=== PATIENT | male | born 1965 | race Caucasian/White ===

== ENCOUNTER 2016-05-16 11:22 | Emergency (ER) | payer OTHER ==
[~2016-05-16] VITALS: Ht 162.6 cm; Wt 91.5 kg
[~2016-05-16 11:22] MED LIST: ASPIRIN CHEWABL81 M1 PO; BP MED; HTN; TRAZODONE HCL50 MG PO
[2016-05-16] MEDS ORDERED: CLONAZEPAM0.5 MG PO (14:36)
[2016-05-16] MEDS ORDERED: RISPERIDONE1 MG PO (14:36)
[2016-05-16] MEDS ORDERED: BENZTROPINE ME0.5 MG PO (14:36)
[2016-05-16] MEDS ORDERED: CITALOPRAM HBR10 MG PO (14:37)
[2016-05-16] MEDS ORDERED: RISPERIDONE3 MG PO (14:37)
[2016-05-16] MEDS ORDERED: ESCITALOPRAM OX20 MG PO (14:40)
[2016-05-16] MEDS ORDERED: ATORVASTATIN CA20 MG PO (14:40)
[2016-05-16] MEDS ORDERED: MOBIC15 MG PO (15:00)
[2016-05-16] MEDS ORDERED: AMOXICILLIN500 MG PO (15:00)
[2016-05-16 15:28] VITALS: BP 149/85
== END 2016-05-16 15:29 | disposition home or self-care (01) ==
LOC: EME 11:22
DX: J32.9 Chronic sinusitis, unspecified (principal)
CPT/HCPCS: 99281; 99283

== ENCOUNTER 2016-10-14 17:17 | Emergency (ER) | payer OTHER ==
[~2016-10-14] VITALS: Ht 180.3 cm; Wt 91.4 kg
[~2016-10-14 17:17] MED LIST changes: +AMOXICILLIN500 MG PO; +ATORVASTATIN CA20 MG PO; +BENZTROPINE ME0.5 MG PO; +CITALOPRAM HBR10 MG PO; +CLONAZEPAM0.5 MG PO; +ESCITALOPRAM OX20 MG PO; +MOBIC15 MG PO; +RISPERIDONE1 MG PO; +RISPERIDONE3 MG PO
[2016-10-14 17:51] VITALS: BP 120/78
== END 2016-10-14 17:52 | disposition home or self-care (01) ==
LOC: EME 17:17 → EXP 17:17
DX: T65.91XA Toxic effect of unspecified substance, accidental (unintentional), initial encounter (principal); T22.412A Corrosion of unspecified degree of left forearm, initial encounter; I10 Essential (primary) hypertension; F32.9 Major depressive disorder, single episode, unspecified; Z87.891 Personal history of nicotine dependence
CPT/HCPCS: 99281; 99282

== ENCOUNTER 2016-10-15 14:05 | Emergency (ER) | payer OTHER ==
[~2016-10-15] VITALS: Ht 180.3 cm; Wt 91.2 kg
[2016-10-15 17:53] VITALS: BP 166/91
== END 2016-10-15 17:55 | disposition home or self-care (01) ==
LOC: EME 14:05
DX: R49.0 Dysphonia (principal)
CPT/HCPCS: 70360; 99281; 99283

== ENCOUNTER 2017-01-23 09:43 | Emergency (ER) | payer OTHER ==
[~2017-01-23] VITALS: Ht 180.3 cm; Wt 94.3 kg
[2017-01-23 12:36] LABS: BASOPHIL COUNT 0.1 K/uL (0-0.1); EOSINOPHIL COUNT 0.1 K/uL (0-0.3); HEMATOCRIT 41.4 % (38.0-50.0); IMMATURE GRANULOCYTE (%) 0.2 % (0.0-0.7); INSTRUMENT ABS NEUTROPHIL CT 3.1 K/uL; LYMPHOCYTE COUNT 2.2 K/uL (1.0-2.8); MCH 28.8 PG (29.0-34.0); MCHC 34.1 G/DL (30.0-36.0); MCV 84.5 FL (86-99); MEAN PLAT.VOLUME 9.4 uM^3 (9.0-12.4); MONOCYTE (%) 7.1 % (3-12); MONOCYTE COUNT 0.4 K/uL (0-0.8); NEUTROPHIL (%) 53.3 % (45-76); NEUTROPHIL COUNT 3.1 K/uL (1.8-6.4); PLATELET COUNT 318 K/uL (156-360); RBC DIS.WIDTH-CV 12.2 % (11.8-14.6); RBC DIS.WIDTH-SD 37.3 % (39-53); WHITE BLOOD COUNT 5.8 K/uL (4.1-10.2)
[2017-01-23 12:46] LABS: CHLORIDE 105 mEq/L (99-109); POTASSIUM 4.1 mEq/L (3.7-5.4); SODIUM 139 mEq/L (136-147)
[2017-01-23 12:48] LABS: GLUCOSE 79 mg/dL (70-99)
[2017-01-23 12:49] LABS: ANION GAP 9 MEQ/L (2-14)
[2017-01-23 12:50] LABS: TOTAL BILIRUBIN 0.6 mg/dL (0.0-1.0)
[2017-01-23 12:52] LABS: ALKALINE PHOSPHATASE 84 IU/L (3-129); GFR ESTIMATE (CALCULATED) > 59 mL/min/
[2017-01-23 12:53] LABS: UREA NITROGEN (BUN) 11 mg/dL (9-23)
[2017-01-23] MEDS ORDERED: ATARAX,VISTARIL50 MG PO (14:03)
[2017-01-23 14:26] VITALS: BP 136/91
== END 2017-01-23 14:26 | disposition home or self-care (01) ==
LOC: EME 09:43
PROVIDERS: Emergency Medicine
DX: L29.9 Pruritus, unspecified (principal); R21 Rash and other nonspecific skin eruption; Z79.82 Long term (current) use of aspirin
CPT/HCPCS: 80053; 85025; 99281; 99284

== ENCOUNTER 2017-04-24 09:39 | Emergency (ER) | payer OTHER ==
[~2017-04-24] VITALS: Ht 180.3 cm; Wt 92.7 kg
[~2017-04-24 09:39] MED LIST changes: +ATARAX,VISTARIL50 MG PO
[2017-04-24 10:27] LABS: HEMATOCRIT 42.1 % (38.0-50.0); HEMOGLOBIN 14.5 G/DL (12.5-16.6); MCH 28.9 PG (29.0-34.0); MCHC 34.4 G/DL (30.0-36.0); PLATELET COUNT 390 K/uL (156-360); RBC DIS.WIDTH-CV 12.2 % (11.8-14.6); RBC DIS.WIDTH-SD 36.6 % (39-53); RED BLOOD COUNT 5.01 M/uL (4.00-5.50); WHITE BLOOD COUNT 11.2 K/uL (4.1-10.2)
[2017-04-24 10:37] LABS: CHLORIDE 104 mEq/L (99-109); POTASSIUM 4.4 mEq/L (3.7-5.4); SODIUM 136 mEq/L (136-147)
[2017-04-24 10:38] LABS: GLUCOSE 106 mg/dL (70-99)
[2017-04-24 10:42] LABS: CREATININE 1.1 mg/dL (0.6-1.3); GFR ESTIMATE (CALCULATED) > 59 mL/min/ (58.99-99999)
[2017-04-24 10:43] LABS: UREA NITROGEN (BUN) 13 mg/dL (9-23)
[2017-04-24 10:47] LABS: TROP-I INTERPRETATION NEGATIVE; TROPONIN-I < 0.01 ng/mL (0.0-0.30)
[2017-04-24 13:08] LABS: D-DIMER ELISA < 150.00 ng/mLDDU (<230)
[2017-04-24 13:21] LABS: TROP-I INTERPRETATION NEGATIVE; TROPONIN-I < 0.01 ng/mL (0.0-0.30)
[2017-04-24] MEDS ORDERED: PREDNISONE20 MG PO (13:33)
[2017-04-24 13:37] VITALS: BP 110/67
== END 2017-04-24 13:44 | disposition home or self-care (01) ==
LOC: EME 09:39
PROVIDERS: Nurse Practitioner Family
DX: J06.9 Acute upper respiratory infection, unspecified (principal); R07.89 Other chest pain; I10 Essential (primary) hypertension; Z86.711 Personal history of pulmonary embolism; Z87.891 Personal history of nicotine dependence; F32.9 Major depressive disorder, single episode, unspecified; F41.9 Anxiety disorder, unspecified; Z79.82 Long term (current) use of aspirin
CPT/HCPCS: 71046; 80048; 84484; 85027; 85379; 93005; 99281; 99283

== ENCOUNTER 2017-04-26 19:01 | Emergency (ER) | payer OTHER ==
[~2017-04-26] VITALS: Ht 180.3 cm; Wt 95.6 kg
[~2017-04-26 19:01] MED LIST changes: +PREDNISONE20 MG PO
[2017-04-26 19:03] VITALS: BP 140/89
== END 2017-04-26 21:46 | disposition home or self-care (01) ==
LOC: EME 19:01
DX: S00.83XA Contusion of other part of head, initial encounter (principal); Y04.0XXA Assault by unarmed brawl or fight, initial encounter; Z79.82 Long term (current) use of aspirin; Z87.891 Personal history of nicotine dependence
CPT/HCPCS: 99281; 99283

== ENCOUNTER 2017-10-13 16:33 | Emergency (ER) | payer OTHER ==
[~2017-10-13] VITALS: Ht 180.3 cm; Wt 87.9 kg
[2017-10-13 17:19] LABS: HEMATOCRIT 39.4 % (38.0-50.0); HEMOGLOBIN 13.9 G/DL (12.5-16.6); MCH 29.7 PG (29.0-34.0); MCHC 35.3 G/DL (30.0-36.0); MCV 84.2 FL (86-99); PLATELET COUNT 350 K/uL (156-360); RBC DIS.WIDTH-CV 12.3 % (11.8-14.6); RED BLOOD COUNT 4.68 M/uL (4.00-5.50); WHITE BLOOD COUNT 9.7 K/uL (4.1-10.2)
[2017-10-13 17:30] LABS: CHLORIDE 103 mEq/L (99-109); POTASSIUM 3.7 mEq/L (3.7-5.4); SODIUM 138 mEq/L (136-147)
[2017-10-13 17:31] LABS: GLUCOSE 111 mg/dL (70-99)
[2017-10-13 17:35] LABS: GFR ESTIMATE (CALCULATED) > 59 mL/min/ (58.99-99999)
[2017-10-13 17:36] LABS: UREA NITROGEN (BUN) 12 mg/dL (9-23)
[2017-10-13 17:43] LABS: TROP-I INTERPRETATION NEGATIVE; TROPONIN-I 0.01 ng/mL (0.0-0.30)
[2017-10-13] MEDS ORDERED: PANTOPRAZOLE SO20 MG PO (19:28)
[2017-10-13 20:18] VITALS: BP 160/96
== END 2017-10-13 20:19 | disposition home or self-care (01) ==
LOC: EME 16:33
DX: R07.9 Chest pain, unspecified (principal); K21.9 Gastro-esophageal reflux disease without esophagitis; R11.2 Nausea with vomiting, unspecified; R06.02 Shortness of breath; I10 Essential (primary) hypertension; E78.5 Hyperlipidemia, unspecified; Z79.82 Long term (current) use of aspirin; Z87.891 Personal history of nicotine dependence
CPT/HCPCS: 71046; 80048; 84484; 85027; 93005; 99281; 99285; S0028

== ENCOUNTER 2017-10-14 21:12 | Observation (INO) | payer OTHER ==
[~2017-10-14] VITALS: Ht 180.3 cm; Wt 86.9 kg
[~2017-10-14 21:12] MED LIST changes: +PANTOPRAZOLE SO20 MG PO
[2017-10-14 21:54] LABS: HEMATOCRIT 41.7 % (38.0-50.0); HEMOGLOBIN 14.7 G/DL (12.5-16.6); MCH 29.8 PG (29.0-34.0); MCHC 35.3 G/DL (30.0-36.0); MCV 84.4 FL (86-99); PLATELET COUNT 376 K/uL (156-360); RBC DIS.WIDTH-CV 12.3 % (11.8-14.6); RBC DIS.WIDTH-SD 37.3 % (39-53); RED BLOOD COUNT 4.94 M/uL (4.00-5.50); WHITE BLOOD COUNT 8.7 K/uL (4.1-10.2)
[2017-10-14 22:03] LABS: CHLORIDE 102 mEq/L (99-109); SODIUM 137 mEq/L (136-147)
[2017-10-14 22:04] LABS: GLUCOSE 107 mg/dL (70-99)
[2017-10-14 22:08] LABS: CREATININE 1.1 mg/dL (0.6-1.3); GFR ESTIMATE (CALCULATED) > 59 mL/min/ (58.99-99999)
[2017-10-14 22:09] LABS: UREA NITROGEN (BUN) 16 mg/dL (9-23)
[2017-10-14 22:20] LABS: TROP-I INTERPRETATION NEGATIVE; TROPONIN-I < 0.01 ng/mL (0.0-0.30)
[2017-10-14 22:39] LABS: ALBUMIN 4.3 g/dL (3.2-4.8)
[2017-10-14 22:42] LABS: TOTAL PROTEIN 7.7 g/dL (6.4-8.3)
[2017-10-14 22:44] LABS: TOTAL BILIRUBIN 0.9 mg/dL (0.0-1.0)
[2017-10-14 22:45] LABS: ALKALINE PHOSPHATASE 82 IU/L (3-129)
[2017-10-14 22:47] LABS: AST (GOT) 17 IU/L (2-34); DIRECT BILIRUBIN 0.3 mg/dL (0.0-0.3)
[2017-10-14 22:48] LABS: ALT (GPT) 16 IU/L (3-49); LIPASE 12 U/L (1.0-51.0)
[2017-10-15 00:15] LABS: D-DIMER ELISA < 150.00 ng/mLDDU (<230)
[2017-10-15 01:18] LABS: TROP-I INTERPRETATION NEGATIVE; TROPONIN-I < 0.01 ng/mL (0.0-0.30)
[2017-10-15 03:05] VITALS: BP 130/80
[2017-10-15 04:35] VITALS: BP 130/80
[2017-10-15 07:49] VITALS: BP 136/81
[2017-10-15] MEDS ORDERED: PANTOPRAZOLE SO20 MG PO (11:04)
[2017-10-15] MEDS ORDERED: MAG-AL PLUS SUS30 ML PO (11:04)
[2017-10-15 12:42] VITALS: BP 130/66
[2017-10-15 13:34] LABS: TROP-I INTERPRETATION NEGATIVE; TROPONIN-I < 0.01 ng/mL (0.0-0.30)
== END 2017-10-15 14:59 | disposition home or self-care (01) ==
LOC: EME 21:12 → EDOF 10-15 02:15 → ENRESERV 10-15 02:15 → 4SOUTH 10-15 03:01
PROVIDERS: Emergency Medicine; Physician Assistant Medical
DX: R07.89 Other chest pain (principal); K21.9 Gastro-esophageal reflux disease without esophagitis; F41.9 Anxiety disorder, unspecified; F20.9 Schizophrenia, unspecified; J06.9 Acute upper respiratory infection, unspecified; R10.13 Epigastric pain; F32.9 Major depressive disorder, single episode, unspecified; G89.29 Other chronic pain; Z87.891 Personal history of nicotine dependence; Z82.49 Family history of ischemic heart disease and other diseases of the circulatory system
CPT/HCPCS: 71045; 76705; 80048; 80076; 83690; 84484; 85027; 85379; 93005; 99281; 99285; G0378; J2405; J7030; S0028